=== PATIENT | male | born 1985 | race Caucasian/White ===

== ENCOUNTER 2020-04-18 11:38 | Emergency (ER) | payer MEDICARE, SELFPAY ==
[2020-04-18 11:40] VITALS: BP 97/52; PULSE 121; RESP 25; TEMP 36.3; O2SAT 99; BMI 23.1
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
[2020-04-18] MEDS: Acetaminophen 325 MG Tablet 650 MG PO (11:56)
[2020-04-18] MEDS: Lidocaine/Epi/Tetracaine 50 ML 1 APPLIC TOPICAL (11:57)
[2020-04-18] MEDS: Diphth,Pertuss(Acell),Tet Vac 0.5 ML Vial IM (12:06)
== END 2020-04-18 12:52 ==
PROVIDERS: Emergency Provider Emergency Medicine
DX: S01.81XA Laceration without foreign body of other part of head, initial encounter (principal); W50.0XXA Accidental hit or strike by another person, initial encounter; Y93.9 Activity, unspecified; Y92.9 Unspecified place or not applicable; Z23 Encounter for immunization; Z86.19 Personal history of other infectious and parasitic diseases; F17.200 Nicotine dependence, unspecified, uncomplicated
CPT/HCPCS: 12013; 70450; 90471; 90715; 99283

== ENCOUNTER 2020-04-20 10:24 | Emergency (ER) | payer MEDICARE, MEDICAID, SELFPAY ==
[2020-04-20 10:25] VITALS: BP 122/56; PULSE 92; RESP 17; TEMP 36.5; O2SAT 98; BMI 22.2
--- NOTE | 2020-04-20 10:39 | ED.DCSUM_ITS ---
History of Present Illness Chief Complaint: Abscess Informant: Patient Narrative: Patient is a 34-year-old male who presents to the emergency department for abscess to the right antecubital fossa. He states that he injected methamphetamine 5 days ago and the swelling started to get worse. It started to drain today. He has had abscesses before in the past. No known diagnosis of MRSA. Denies any systemic symptoms including any fever/chills or nausea/vomiting. No other abscesses at this time. He denies any chest pain or shortness of breath. No abdominal pain or nausea/vomiting. He has not tried anything for this. No streaking up the arm. Past Medical History - Allergies and Home Meds Allergies/Adverse Reactions: Allergies No Known Allergies Allergy (Verified 04/20/20 10:24) Primary Care Physician: Care Physician,No Primary [Primary Care Provider] - Prior records reviewed: Yes Past Medical History: - - Hepatitis C Smoking Status: Current every day smoker - Family History Maternal Family History: Reports: No pertinent history Review of Systems All systems negative except as indicated General: Denies: Chills, Fever, Sweats Eyes: Denies: Visual changes - bilaterally, Diplopia ENT: Denies: Rhinorrhea Cardiovascular: Denies: Chest pain, Palpitations Respiratory: Denies: Dyspnea, Cough, Dyspnea on exertion Gastrointestinal: Denies: Abdominal pain, Nausea, Vomiting, Diarrhea Genitourinary: Denies: Dysuria, Hematuria Musculoskeletal: Denies: Back pain, Extremity Pain Skin: Reports: Abscess. Denies: Rash, Wounds Neurological: Denies: Headache, Weakness, Numbness Physical Exam Vital Signs/Narrative: Vital Signs Temp Pulse Resp BP Pulse Ox 04/20/20 10:25 97.7 F L 92 17 122/56 H 98 Inital Vital Signs reviewed: Yes General: Well nourished, Well developed, No Acute Distress Head: Normocephalic Eyes: Perrl, EOMI ENT: Moist mucous membranes, No rhinorrhea Neck: Supple, Nontender Cardiovascular: Regular rate, Regular rhythm, No murmurs Respiratory: No distress, CTA bilaterally, Chest nontender Abdomen: Soft, Nontender, Nondistended, Normal bowel sounds Back: Nontender, Normal Inspection Extremities: Nontender, No edema Skin: Normal color, No rash, - - Abscess to the right antecubital fossa. Surrounding area of induration. There is some yellow purulent discharge present. No streaking up the arm. 2+ radial pulse. Full muscle strength. Neurological: Alert, Oriented x3, Normal Strength, Normal Sensation Psychological: Normal affect, Normal Mood Diagnostic/Tx/Re-eval - Medical Decision Making Patient presents to the emergency department for abscess to his right arm. This was already draining. I did put pressure around the area to express a lots of purulent discharge. No incision was required for this drainage. Will place him on antibiotics. We will give him Keflex and Bactrim. Patient does not have a PCP listed so he is provided one from the no doc list for close follow-up. Warning signs and symptoms for which to return to the emerge department eluding any streaking up the arm, developing any fever/chills are reviewed. Patient counseled on substance abuse. At this time patient discharged home in stable condition. All questions answered. ED Disposition - Plan for ED Patient: Disposition: Home or Assisted Living Diagnosis: Abscess, Substance abuse Instructions: Abscess Drainage Prescriptions: Smz/Tmp Ds [Bactrim Ds] 2 tab PO BID #28 tab Transmission Status: Pending to [facility] Cephalexin [Keflex] 500 mg PO Q6 7 Days #28 cap Transmission Status: Pending to [facility] Referrals: Care Physician,No Primary [Primary Care Provider] - Sam Mahoney MD [STAFF PHYSICIAN] - 3-5 Days
== END 2020-04-20 10:54 | disposition home or self-care (01) ==
LOC: ED 10:46
PROVIDERS: Emergency Provider Emergency Medicine
DX: L02.413 Cutaneous abscess of right upper limb (principal); F19.10 Other psychoactive substance abuse, uncomplicated; F17.200 Nicotine dependence, unspecified, uncomplicated
CPT/HCPCS: 99282

== ENCOUNTER 2020-04-21 19:05 | Emergency (ER) | payer MEDICARE, MEDICAID, SELFPAY ==
[2020-04-20 10:25] VITALS: BMI 22.2
[2020-04-21 19:06] VITALS: BP 138/100; PULSE 102; RESP 20; TEMP 36.8; O2SAT 100; BMI 23.0
--- NOTE | 2020-04-21 19:53 | CT_ITS ---
STUDY: CT ABDOMEN AND PELVIS WITHOUT CONTRAST REASON FOR EXAM: Male, 34 years old. RT GROIN PAIN X COUPLE HOURS/BURNING WITH URINATION RADIATION DOSAGE (If Supplied By Facility): CTDIvol = ( 6.20 ) mGy, DLP = ( 305.02 ) mGycm TECHNIQUE: Transaxial images were obtained from the dome of the diaphragm to the symphysis pubis without oral contrast, and without intravenous contrast. Sagittal and coronal images were reconstructed. Individualized dose optimization techniques were used for this CT. COMPARISON: None. FINDINGS: The visualized lung bases are unremarkable. The visualized portions of the heart are within normal limits. Normal liver. Normal gallbladder and extrahepatic biliary system. Borderline splenomegaly. The spleen measures 13 cm in length. Normal pancreas. Normal bilateral adrenal glands. 2 mm stone in the distalmost right ureter at the level of the ureterovesical junction with changes of mild acute obstructive uropathy. Normal left kidney. Normal visualized stomach. Normal small intestine. Normal colon. The appendix is visualized and appears normal. Normal abdominal aorta. Normal inferior vena cava. Normal retroperitoneum. Normal urinary bladder. Normal abdominal wall. Normal osseous structures. CT/Abdomen/Pelvis without Cont IMPRESSION: 2 mm stone in the distalmost right ureter at the level of the ureterovesical junction with changes of mild acute obstructive uropathy. Electronically Signed: Alex Chandler MD at 20:52 EST Tel , Service support ,
--- NOTE | 2020-04-21 19:54 | ED.DCSUM_ITS ---
History of Present Illness Chief Complaint: Complaint Informant: Patient Narrative: Patient states that 3 hours prior to arrival emergency department he began to have severe pain in his penis and suprapubic area. He notes urinary frequency but only goes small amounts. He reports no nausea vomiting. No flank pain. He states he had a kidney stone about 15 years ago. No fevers. No drainage from the penis. He is currently on Keflex and Bactrim for a axillary abscess from amphetamine use. Past Medical History - Allergies and Home Meds Allergies/Adverse Reactions: Allergies No Known Allergies Allergy (Verified 04/20/20 10:24) Primary Care Physician: Mo Larson MD [STAFF PHYSICIAN] - 1 Week if not improving Past Medical History: - - Polysubstance drug abuse Surgical History: noncontributory Smoking Status: Current every day smoker Drugs: - - Methamphetamines - Family History Maternal Family History: Reports: No pertinent history Review of Systems General: Denies: Chills, Fever, Sweats Eyes: Denies: Visual changes - bilaterally, Diplopia ENT: Denies: Rhinorrhea, Sore throat Cardiovascular: Denies: Chest pain, Palpitations Respiratory: Denies: Dyspnea, Cough, Dyspnea on exertion Gastrointestinal: Reports: Abdominal pain. Denies: Nausea, Vomiting, Diarrhea, Melena, Hematochezia Genitourinary: Reports: Frequency. Denies: Dysuria, Hematuria Musculoskeletal: Denies: Back pain, Extremity Pain Skin: Reports: Abscess. Denies: Rash, Wounds Neurological: Denies: Headache, Weakness, Numbness Physical Exam Vital Signs/Narrative: Vital Signs Temp Pulse Resp BP Pulse Ox 04/21/20 19:06 98.2 F 102 H 20 H 138/100 H 100 Inital Vital Signs reviewed: Yes General: Well nourished, Well developed, No Acute Distress, - - Patient is cursing and rocking back and forth. Head: Normocephalic, Atraumatic Eyes: Perrl, EOMI ENT: Moist mucous membranes, No rhinorrhea Neck: Supple, Nontender Cardiovascular: Regular rate, Regular rhythm, No murmurs Respiratory: No distress, CTA bilaterally, Chest nontender Abdomen: Soft, Nontender, Nondistended, Normal bowel sounds Back: Nontender, Normal Inspection Extremities: Nontender, No edema Skin: Normal color, No rash Neurological: Alert, Oriented x3, Cranial nerves II-XII grossly intact, Normal Strength, Normal Sensation Psychological: Normal affect, Normal Mood Diagnostic/Tx/Re-eval Clinical Impression(s) from Imaging Studies Abdomen/Pelvis CT 04/21/20 19:53 IMPRESSION: 2 mm stone in the distalmost right ureter at the level of the ureterovesical junction with changes of mild acute obstructive uropathy. Electronically Signed: Alex Chandler MD at 20:52 EST Tel , Service support , Laboratory Last Values WBC 12.4 K/mm3 (4.4-11.0) H 04/21/20 19: RBC 4.42 M/mm3 (4.6-6.2) L 04/21/20 19:03 Hgb 12.5 g/dL (13.0-16.5) L 04/21/20 19: Hct 38.9 % (40-54) L 04/21/20 19: MCV 88.0 fL (80-94) 04/21/20 19:03 MCH 28.3 pg (27.0-32.0) 04/21/20 19: MCHC 32.1 g/dL (32-36) 04/21/20 19:03 RDW Std Deviation 40.1 fl (35.1-43.9) 04/21/20 19:03 RDW Coeff of Anamaria 12.4 % (11.6-14.6) 04/21/20 19: Plt Count 431 K/mm3 (150-450) 04/21/20 19: MPV 8.7 fl (6.2-12.0) 04/21/20 19:03 Immature Gran % (Auto) 1.400 % (0.0-0.9) H 04/21/20 19:03 Neut % (Auto) 81.6 % (47-70) H 04/21/20 19:03 Lymph % (Auto) 8.9 % (19-41) L 04/21/20 19:03 Centre % (Auto) 6.8 % (0-10) 04/21/20 19:03 Eos % (Auto) 1.1 % (0-5) 04/21/20 19:03 Baso % (Auto) 0.2 % (0-1) 04/21/20 19:03 Absolute Neuts (auto) 10.1 X10^3/uL (2.0-7.7) H 04/21/20 19:03 Absolute Lymphs (auto) 1.11 X10^3/uL (0.83-4.51) 04/21/20 19:03 Nucleated RBC % 0 % (0-5) 04/21/20 19:03 Sodium 132 mmol/L (136-145) L 04/21/20 19:03 Potassium 3.9 mmol/L (3.5-5.1) 04/21/20 19:03 Chloride 98 mmol/L (98-107) 04/21/20 19:03 Carbon Dioxide 26.0 mmol/L (21.0-32.0) 04/21/20 19:03 Anion Gap 8 (5-15) 04/21/20 19: BUN 14 mg/dL (7-18) 04/21/20 19: Creatinine 1.08 mg/dL (0.70-1.30) 04/21/20 19:03 Estim Creat Clear Calc 99.24 ml/min 04/21/20 19:03 Est GFR (MDRD) Af Amer 100 mL/min (>60) 04/21/20 19:03 Est GFR (MDRD) Non-Af 83 mL/min (>60) 04/21/20 19:03 BUN/Creatinine Ratio 13.0 RATIO (10-20) 04/21/20 19: Glucose 90 mg/dL (74-106) 04/21/20 19: Calcium 9.2 mg/dL (8.5-10.1) 04/21/20 19:03 Urine Color Yellow (Yellow) 04/21/20 20:00 Urine Clarity Clear (Clear) 04/21/20 20:00 Urine pH 6.0 (5.0 - 8.0) 04/21/20 20:00 Ur Specific [place] 1.010 (1.002-1.030) 04/21/20 20:00 Urine Protein Negative mg/dl (Negative) 04/21/20 20:00 Urine Glucose (UA) Normal mg/dl (Normal) 04/21/20 20:00 Urine Ketones 5 mg/dl (Negative) H 04/21/20 20:00 Urine Occult Blood 250 /ul (Negative) H 04/21/20 20:00 Urine Nitrite Negative (Negative) 04/21/20 20:00 Urine Bilirubin Negative mg/dL (Negative) 04/21/20 20:00 Urine Urobilinogen Normal mg/dl (Normal) 04/21/20 20:00 Ur Leukocyte Esterase Negative /ul (Negative) 04/21/20 20:00 Urine RBC 0-5 SEEN /hpf (0-5) 04/21/20 20:00 Urine WBC 0-5 SEEN /hpf (0-5) 04/21/20 20:00 Ur Squamous Epith Cells 0 SEEN /hpf (0-5) 04/21/20 20:00 Urine Bacteria 0 SEEN /hpf (None Seen) 04/21/20 20:00 Urine Mucus 0 SEEN /hpf (<or=2+) 04/21/20 20:00 - Medical Decision Making Patient received Toradol morphine ativan and IV fluids. Evaluation reveals a distal 2 to 3 mm ureteral stone near the bladder. His pain is now controlled. We talked about pain control at home and if not improving following up with urology or returning for uncontrolled pain. The patient is currently at [facility] for drug rehab. He tells me they informed him that if he comes to the hospital tonight he will be allowed back until he is cleared by a urologist. That does not seem to make any sense for me. So we are going to attempt to reach administration at [facility] to find out what is going on. He informed nursing that he cannot sleep on the streets [facility] and if we 10 attempt to discharge him he will could say that he is going to kill himself. I informed him that this is manipulative behavior. If he is even anticipating that he is going to say this then it is very clear that he is not truly suicidal. If he wants to remain calm we will be happy to work with him. ED Disposition - Plan for ED Patient: Disposition: Home or Assisted Living Diagnosis: Ureterolithiasis, Acute abdominal pain Instructions: ED Renal Stone w Colic Prescriptions: Ketorolac [Toradol] 10 mg PO Q8H PRN #15 tab PRN Reason: pain Prescription Printed Ondansetron [Zofran Odt] 4 mg PO Q6H PRN PRN #14 tab PRN Reason: Nausea Prescription Printed Referrals: Mo Larson MD [STAFF PHYSICIAN] - 1 Week if not improving
[2020-04-21 20:04] LABS: Absolute Lymphocyte Count 1.11 X10^3/uL (0.83-4.51); Absolute Neutrophil Count 10.1 X10^3/uL (2.0-7.7); Basophil# 0.02 X10^3/uL; Basophil% 0.2 % (0-1); Eosinophil# 0.14 X10^3/uL; Eosinophils% 1.1 % (0-5); Hematocrit 38.9 % (40-54); Hemoglobin 12.5 g/dL (13.0-16.5); Lymphocyte # 1.11 X10^3/ul (4.0); Lymphocyte % 8.9 % (19-41); Mean Corp Hgb Conc 32.1 g/dL (32-36); Mean Corpuscular Hgb 28.3 pg (27.0-32.0); Mean Platelet Vol. 8.7 fl (6.2-12.0); Monocyte# 0.85 X10^3/uL; Monocyte% 6.8 % (0-10); NRBC Flagged by Analyzer 0 % (0-5); Neutrophil # 10.13 X10^3/uL (2.7-7.7); Neutrophil % 81.6 % (47-70); Platelet Count 431 K/mm3 (150-450); RBC Distribution Width CV 12.4 % (11.6-14.6); RBC Distribution Width SD 40.1 fl (35.1-43.9); Red Blood Count 4.42 M/mm3 (4.6-6.2); White Blood Count 12.4 K/mm3 (4.4-11.0)
[2020-04-21] MEDS: Ketorolac 30 MG/ML Syringe IV (20:04)
[2020-04-21 20:12] LABS: Bacteria 0 SEEN /hpf (None Seen); Mucous, Urine 0 SEEN /hpf (<or=2+); Squamous Epithelial Cells - UA 0 SEEN /hpf (0-5)
[2020-04-21 20:13] LABS: Anion Gap 8 (5-15); BUN 14 mg/dL (7-18); Calcium,Total 9.2 mg/dL (8.5-10.1); Chloride 98 mmol/L (98-107); Creatinine, Serum 1.08 mg/dL (0.70-1.30); EST Glomerular Filtration Rate 83 mL/min (>60); Est Glom Filt Rate - Afr Amer 100 mL/min (>60); Estimated Creatinine Clearance 99.24 ml/min; Glucose 90 mg/dL (74-106); Potassium 3.9 mmol/L (3.5-5.1); Sodium Level 132 mmol/L (136-145)
[2020-04-21 20:26] LABS: Color, Urine Yellow (Yellow); Glucose, Dipstick Normal (Normal); Ketone-Dipstick 5 mg/dl (Negative); Leukocyte Esterase-Dipstick Negative /ul (Negative); Nitrite-Dipstick Negative (Negative); Occult Blood-Urine 250 /ul (Negative); Protein-Dipstick Negative (Negative); Urine Bilirubin Dipstick Negative (Negative); Urine Clarity Clear (Clear); Urine Urobilinogen Normal (Normal)
[2020-04-21 20:55] LABS: White Blood Cells 0-5 SEEN /hpf (0-5)
[2020-04-21 20:57] LABS: Red Blood Cells-Urine 0-5 SEEN /hpf (0-5)
[2020-04-21] MEDS: Morphine 4 MG/ML Syringe IV (21:01)
[2020-04-21] MEDS: LORazepam 2 MG/ML Syringe 0.5 MG IV (21:01)
[2020-04-21 22:17] VITALS: BP 111/72; PULSE 90; RESP 16
--- NOTE | 2020-04-21 22:36 | ED.DCSUM_ITS ---
- ER Visit Summary Date of Service: 04/21/20 Chief Complaint: [] History of Present Illness: The patient is a 34 M [] Physical Examination: [] Test Results: [] Emergency Department Course and Treatment: [] Treatment Plan: [] Disposition: [] Impression: [] This note was generated with [employer] dictation software. It may contain incorrect words, spelling, and punctuation that were not noted in review of the chart prior to signing ED Disposition - Plan for ED Patient: Disposition: Home or Assisted Living Diagnosis: Ureterolithiasis, Acute abdominal pain Instructions: ED Renal Stone w Colic Prescriptions: Naproxen [Naprosyn] 500 mg PO BID #14 tab Prescription Printed Ketorolac [Toradol] 10 mg PO Q8H PRN #15 tab PRN Reason: pain Prescription Printed Ondansetron [Zofran Odt] 4 mg PO Q6H PRN PRN #14 tab PRN Reason: Nausea Prescription Printed Referrals: Mo Larson MD [STAFF PHYSICIAN] - 1 Week if not improving
== END 2020-04-21 22:18 | disposition home or self-care (01) ==
PROVIDERS: Emergency Provider Emergency Medicine
DX: N20.1 Calculus of ureter (principal); L02.419 Cutaneous abscess of limb, unspecified; F15.90 Other stimulant use, unspecified, uncomplicated; Z87.442 Personal history of urinary calculi; F17.200 Nicotine dependence, unspecified, uncomplicated
CPT/HCPCS: 74176; 80048; 81001; 85025; 96374; 96375; 99285; J7030; A4216

== ENCOUNTER 2020-10-19 13:40 | Emergency (ER) | payer MEDICARE, MEDICAID, SELFPAY ==
[2020-08-28 11:55] VITALS: BMI 27.1
[2020-10-19 13:41] VITALS: BP 124/86; PULSE 83; RESP 16; TEMP 35.9; O2SAT 97; BMI 26.6
[2020-10-19 15:59] VITALS: BP 140/86; PULSE 93; RESP 16; O2SAT 98
--- NOTE | 2020-10-19 16:25 | EKG12_ITS ---
Test Reason : Blood Pressure : / mmHG Vent. Rate : 092 BPM Atrial Rate : 092 BPM P-R Int : 144 ms QRS Dur : 092 ms QT Int : 372 ms P-R-T Axes : 048 076 031 degrees QTc Int : 460 ms Normal sinus rhythm Normal ECG Confirmed by FILOMENA SWEET, FATOU ([id number]), industrial editor EDWIGE CHAKRABORTY ([id number]) on 10/23/2020 2:52:44 PM Referred By: ÁNGELA Confirmed By:FATOU BUTT MD
[2020-10-19 16:52] LABS: Absolute Lymphocyte Count 1.46 X10^3/uL (0.83-4.51); Absolute Neutrophil Count 3.8 X10^3/uL (2.0-7.7); Basophil# 0.02 X10^3/uL; Basophil% 0.3 % (0-1); Eosinophil# 0.18 X10^3/uL; Hematocrit 42.5 % (40-54); Hemoglobin 13.8 g/dL (13.0-16.5); Lymphocyte # 1.46 X10^3/ul (0.83-4.51); Lymphocyte % 24.3 % (19-41); Mean Corp Hgb Conc 32.5 g/dL (32-36); Mean Corpuscular Hgb 28.9 pg (27.0-32.0); Mean Corpuscular Volume 89.1 fL (80-94); Mean Platelet Vol. 8.7 fl (6.2-12.0); Monocyte# 0.52 X10^3/uL; Monocyte% 8.6 % (0-10); NRBC Flagged by Analyzer 0 % (0-5); Neutrophil # 3.82 X10^3/uL (2.7-7.7); Neutrophil % 63.5 % (47-70); Platelet Count 255 K/mm3 (150-450); RBC Distribution Width CV 12.9 % (11.6-14.6); RBC Distribution Width SD 42.5 fl (35.1-43.9); Red Blood Count 4.77 M/mm3 (4.6-6.2)
[2020-10-19 17:00] VITALS: PULSE 84; RESP 18; O2SAT 97
[2020-10-19 17:04] LABS: Anion Gap 5 (5-15); BUN 17 mg/dL (7-18); Chloride 109 mmol/L (98-107); Creatinine, Serum 1.21 mg/dL (0.70-1.30); EST Glomerular Filtration Rate 73 mL/min (>60); Est Glom Filt Rate - Afr Amer 88 mL/min (>60); Estimated Creatinine Clearance 87.98 ml/min; Glucose 111 mg/dL (74-106); Potassium 3.7 mmol/L (3.5-5.1); Sodium Level 141 mmol/L (136-145)
--- NOTE | 2020-10-19 17:44 | EDS_ITS ---
HPI History of Present Illness Chief Complaint: Overdose Informant: patient Onset/Context/Timing Onset: Days (2) Context: Sudden Onset Timing: Continuous Worsened by: Nothing Relieved by: Nothing Narrative Narrative: Patient presents after taking too many Wellbutrin tablets 2 days ago. Patient states he took 6 tablets of 300 mg to get high. Patient had an appoint with 180 today. Patient was referred to the emergency department to get his tricyclic levels checked. Currently, the patient denies any symptoms. P atient denies any suicidal or homicidal ideations. [facility] Medical History (Updated 10/19/20 @ 17:[address] Kareem Jaquez, ) Bipolar 1 disorder Depression with anxiety History of drug abuse Insomnia Kidney stones Home Medications amitriptyline 100 mg PO DAILY 04/18/20 [History Last Taken Unknown] bupropion HCl 300 mg 24 hr tablet, extended release 300 mg PO QAM #30 tab 05/01/20 [Rx Last Taken Unknown] olanzapine 15 mg tablet 15 mg PO DAILY tablet 08/28/20 [History Last Taken Unknown] omeprazole 20 mg capsule,delayed release 20 mg PO DAILY cap 08/28/20 [History Last Taken Unknown] paroxetine HCl 20 mg tablet 20 mg PO DAILY tablet 08/28/20 [History Last Taken Unknown] Allergy/AdvReac Type Severity Reaction Status Date / Time No Known Allergies Allergy Verified 10/19/20 13:43 Family History Other No significant family history Surgical History History of wisdom tooth extraction Social History Smoking Status: Current every day smoker Electronic Cigarette Use: with nicotine alcohol intake: never substance use type: former substance user Date of last use: 04/17/2020, heroin, opiates and methamphetamine what type of physical activity do you participate in: none ROS ROS ED Constitutional Constitutional ED: Denies chills or fever(s) Eyes Eyes: Denies blurry vision or change in vision ENT ENT ED: Denies rhinorrhea or sore throat Cardiovascular Cardiovascular: Denies chest pain or palpitations Respiratory/Chest Respiratory/Chest: Denies cough or dyspnea Gastrointestinal Gastrointestinal: Denies nausea or vomiting Genitourinary Genitourinary ED: Denies dysuria or hematuria Musculoskeletal Musculoskeletal: Denies back pain or neck pain Integumentary Denies abscess or rash Neurologic Neurologic: Denies headache(s) or weakness Allergic/Immunologic Allergic/Immunologic ED: Denies mouth swelling or urticaria EXAM Physical Exam Const Vital Signs: 10/19/20 13:41 10/19/20 15:59 10/19/20 17:00 Temperature 96.7 F L Temperature Source Temporal Pulse Rate 83 93 84 Respiratory Rate 16 16 18 Blood Pressure 124/86 H 140/86 H Blood Pressure Mean 98 104 Pulse Ox 97 98 97 Oxygen Delivery Method Room Air Room Air Room Air Neck supple and no JVD Resp normal respiratory effort and clear to auscultation bilaterally Cardio regular rate and regular rhythm GI normal to inspection, nondistended, normoactive bowel sounds and non-tender Palpation: soft Neuro oriented x3, CN's II-XII intact bilaterally and no sensory deficits noted Sensorium / Orientation: alert Motor Exam: strength 5/5 throughout Psych mental status grossly normal and denies suicidal ideation MDM MDM MDM Narrative Medical decision making narrative: EKG was obtained. On my interpretation, it showed a normal sinus rhythm with a rate of 92. ND interval, QRS interval, and QTc intervals were all normal. Burke was normal. There are no acute ST or T wave changes. CBC and basic metabolic profile were obtained and were within normal limits. Case was discussed with poison control. They did not recommend any further treatment or testing. Patient is feeling better on reevaluation. Patient was advised of his findings. Patient was instructed to follow-up with his primary care physician in 5 to 7 days. Patient understood and was agreeable with the plan. All questions were answered. Lab Data Attestation: I reviewed the patient's lab results. Labs: Laboratory Results - last 24 hr 10/19/20 10/19/20 16:40 16:40 WBC 6.0 RBC 4.77 Hgb 13.8 Hct 42.5 MCV 89.1 MCH 28.9 MCHC 32.5 RDW Std Deviation 42.5 RDW Coeff of [place] 12.9 Plt Count 255 MPV 8.7 Immature Gran % (Auto) 0.300 Neut % (Auto) 63.5 Lymph % (Auto) 24.3 [place] % (Auto) 8.6 Eos % (Auto) 3.0 Baso % (Auto) 0.3 Absolute Neuts (auto) 3.8 Absolute Lymphs (auto) 1.46 Nucleated RBC % 0 Sodium 141 Potassium 3.7 Chloride 109 H Carbon Dioxide 27.0 Anion Gap 5 BUN 17 Creatinine 1.21 Estim Creat Clear Calc 87.98 Est GFR (MDRD) Af Amer 88 Est GFR (MDRD) Non-Af 73 BUN/Creatinine Ratio 14.0 Glucose 111 H Calcium 9.0 EKG Initial EKG: Attestation: I personally reviewed and interpreted this EKG as follows: Interpretation: Sinus Rhythm (92) and No Acute Injury Pattern Discharge Plan Triage Chief Complaint: Overdose ED Provider: Kareem Jaquez Dx/Rx/DC Orders Clinical Impression: Drug overdose Instructions: ED Drug Abuse Prescriptions: No Action bupropion HCl [Wellbutrin XL] 300 mg tablet extended release 24 hr 300 mg PO QAM Qty: 30 RF: 5 olanzapine 15 mg tablet 15 mg PO DAILY RF: 0 omeprazole 20 mg capsule,delayed release(DR/EC) 20 mg PO DAILY RF: 0 paroxetine HCl 20 mg tablet 20 mg PO DAILY RF: 0 amitriptyline 100 MG tablet 100 mg PO DAILY RF: 0 Primary Care Provider: Care Physician,No Primary Referrals: Care Physician,No Primary [Primary Care Provider] - [facility] [STAFF PHYSICIAN] - 3-5 Days Disposition Disposition: Home, self care
[2020-10-19 18:17] VITALS: PULSE 94; RESP 15; O2SAT 98
== END 2020-10-19 18:15 | disposition home or self-care (01) ==
PROVIDERS: Emergency Provider Emergency Medicine
DX: T43.291A Poisoning by other antidepressants, accidental (unintentional), initial encounter (principal); Y92.9 Unspecified place or not applicable; F31.9 Bipolar disorder, unspecified; G47.00 Insomnia, unspecified; F41.8 Other specified anxiety disorders; Z87.442 Personal history of urinary calculi; Z79.899 Other long term (current) drug therapy; F17.200 Nicotine dependence, unspecified, uncomplicated
CPT/HCPCS: 80048; 85025; 93005; 99284; A4216

== ENCOUNTER → 2021-02-06 | Outpatient (CLI) | payer MEDICARE, MEDICAID, SELFPAY | END | disposition home or self-care (01) | PROVIDERS: Visit Provider Physician Assistant Surgical | DX: Z20.822 Contact with and (suspected) exposure to COVID-19 (principal) | CPT/HCPCS: 87635; U0005; U0003 ==